=== PATIENT | female | born 1980 | race African-American/Black ===

== ENCOUNTER 2017-06-04 18:35 | Emergency (ER) | payer MEDICAID ==
[~2017-06-04] VITALS: Ht 170.2 cm; Wt 72.8 kg
[~2017-06-04 18:35] MED LIST: AUGM875T PO; PROT40TA PO
[2017-06-04 18:39] VITALS: BP 123/64; PULSE 78; RESP 16; TEMP 98.8; O2SAT 100
[2017-06-04] MEDS ORDERED: PANT20 PO (18:50)
[2017-06-04] MEDS ORDERED: PROM25TA10 PO (18:50)
[2017-06-04] MEDS ORDERED: ACETAMINOPHEN/HYDROcodone 325 MG/5 MG TAB PO ONE (19:00)
[2017-06-04] MEDS ORDERED: CLINDAMYCIN PHOS 900 MG/6 ML VIAL IM ONE (19:00)
[2017-06-04] MEDS ORDERED: CLIN150C14 PO (19:04)
[2017-06-04] MEDS ORDERED: IBUP1TAB7 PO (19:04)
[2017-06-04] MEDS ORDERED: NORC5TAB PO (19:04)
[2017-06-04] MEDS ORDERED: PERI0.126 SWISH-SPIT (19:04)
--- NOTE | 2017-06-04 19:06 | PD ---
HPI Chief Complaint: Oral / Dental Pain or Problem Time Seen by Provider: 18:51 Travel History International Travel<30 days: No Contact w/Intl Traveler<30days: No Traveled to known affect area: No History of Present Illness HPI 36-year-old female presents to the emergency department for evaluation of swelling to the right lower jaw. She states she woke up with this this morning. Patient also states she's had a sore throat for a week. She states her dentist sent her to the emergency department after she called her today. Patient denies any fevers or chills. She has a history of reflux. Patient is able to eat, but states it is painful due to her sore throat. Moderate severity. No exacerbating or alleviating factors. PFSH Past Medical History Cancer: No Cardiovascular Problems: No Diabetes: No Diminished Hearing: No GERD: Yes Glaucoma: No Hepatitis: No Hiatal Hernia: No Hypertension: No Reproductive: Yes (PID) Respiratory: No Immunizations Current: No Thyroid Disease: No Influenza Vaccination: No ?: Not : 5 Para: 4 Miscarriage: 1 : 0 Dilation and Curettage (D&C): Yes Past Surgical History Gynecologic Surgery: Yes (D&C 2008) Oral Surgery: Yes (TEETH EXTRACTION) Pacemaker: No Other Surgery: Yes Social History Alcohol Use: Yes (occasional) Tobacco Use: No Substance Use: No Allergies-Medications (Allergen,Severity, Reaction): Coded Allergies: No Known Allergies (Verified Adverse Reaction, Unknown, 06/04/17) Reported Meds & Prescriptions Reported Meds & Active Scripts Active Reported Phenergan (Promethazine HCl) 25 Mg Tablet 25 Mg PO Q6H PRN Protonix (Pantoprazole Sodium) 20 Mg Tab 20 Mg PO DAILY Review of Systems Except as stated in HPI: all other systems reviewed are Neg Physical Exam Narrative GENERAL: Well-nourished, well-developed female patient, ambulatory. Afebrile. SKIN: Focused skin assessment warm/dry. HEAD: Normocephalic. Atraumatic. Patient has right lower facial swelling. No Alexi's angina. The swelling does not extend beyond the mandibular edge. ENT: Mucosa pink and moist. No erythema or exudates. No uvular edema. No uvular , palatal, or tonsillar deviation. Airway patent. Nasal turbinates appear normal without nasal blood, purulent drainage or septal hematoma. Bilateral tympanic membranes are clear without erythema or perforation. Patient has tenderness and swelling to the gingiva to the right lower gumline. EYES: No scleral icterus. No injection or drainage. NECK: Supple, trachea midline. No JVD or lymphadenopathy. CARDIOVASCULAR: Regular rate and rhythm without murmurs, gallops, or rubs. RESPIRATORY: Breath sounds equal bilaterally. No accessory muscle use. Lungs sounds are clear to auscultation. GASTROINTESTINAL: Abdomen soft, non-tender, nondistended. MUSCULOSKELETAL: No cyanosis, or edema. BACK: Nontender without obvious deformity. No CVA tenderness. Data Data Last Documented VS Vital Signs Date Time Temp Pulse Resp B/P (MAP) Pulse Ox O2 Delivery O2 Flow Rate FiO2 06/04/17 18:39 98.8 78 16 123/64 (83) 100 Orders Orders Clindamycin Inj (Cleocin Inj) (06/04/17 19:00) Acetamin-Hydrocod 325-5 Mg (Jewett 5-325 (06/04/17 19:00) MDM Medical Decision Making Medical Screen Exam Complete: Yes Emergency Medical Condition: Yes Medical Record Reviewed: Yes Differential Diagnosis Dental abscess versus dental caries versus Alexi's angina Narrative Course 36 year old female presents to the emergency department for evaluation of facial swelling that started this morning upon awakening. She also reports a sore throat for 1 week. Physical exam is consistent with a dental abscess. There is no evidence of Alexi angina on exam. Patient is given clindamycin 900 mg IM, Lortab 5/325 mg by mouth in the emergency department. She'll be discharged with a prescription for clindamycin, Lortab, Peridex oral solution. She is to follow-up with her dentist. She is return here for any acute worsening of symptoms. The patient was discharged in stable condition with instructions, including return instructions and follow up instructions. Diagnosis Primary Impression: Dental abscess Referrals: Dentist 2 days Patient Instructions: General Instructions, Narcotic given in the ED Additional Instructions: Take antibiotic as directed until gone. Take Jewett as directed as needed for moderate to severe pain. Take ibuprofen as directed as needed for [id number] pain. Caution Jewett can make you drowsy so do not drive after taking. Use Peridex oral solution as directed. Follow-up with a dentist. Return to the emergency department for any acute worsening of symptoms. Med/Other Pt SpecificInfo: Prescription(s) given Scripts Chlorhexidine Gluconate (Mouth) Liq (Peridex Liq) 0.12% Soln 15 ML SWISH-SPIT BID, #473 ML 0 Refills Prov: Lesia Frederick 06/04/17 Ibuprofen (Ibuprofen) 800 Mg Tab 800 MG PO TID Y for PAIN SCALE 1 TO 10, #21 TAB 0 Refills Prov: Lesia Frederick 06/04/17 Hydrocodone-Acetaminophen (Jewett) 5 Mg-325 Mg Tab 1 TAB PO Q6H Y for PAIN, #12 TAB 0 Refills Prov: Lesia Frederick 06/04/17 Clindamycin (Clindamycin) 150 Mg Cap 300 MG PO Q6H for Infection for 10 Days, #80 CAP 0 Refills Prov: Lesia Frederick 06/04/17 Disposition: 01 DISCHARGE HOME Condition: Stable Lesia Frederick Jun 04, 2017 19:06
== END 2017-06-04 19:43 | disposition home or self-care (01) ==
LOC: PHEFT 18:35
DX: K04.7 Periapical abscess without sinus (principal)
CPT/HCPCS: 96372